=== PATIENT | female | born 2000 | race Caucasian/White ===

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

== ENCOUNTER → 2022-03-19 | Outpatient (REF) | payer BC, OTHER ==
[~2022-03-19] MED LIST changes: +BIRTH CONTOL; +IBUP-1022 PO
[2022-03-19 20:07] LABS: GC DNA AMPLIFICATION NEGATIVE (NEGATIVE)
== END ==
LOC: M LAB REF 16:56
PROVIDERS: ATTEND Nurse Practitioner Family
DX: Z11.3 Encounter for screening for infections with a predominantly sexual mode of transmission (principal)

== ENCOUNTER → 2022-09-20 | Outpatient (CLI) | payer BC, OTHER ==
[2022-09-20 13:31] LABS: HEMOGLOBIN 12.3 g/dl (12.0-15.5); MEAN CORPUSCULAR HEMOGLOBIN 29.9 pg (27.0-33.0); MEAN CORPUSCULAR HGB CONC 34.2 g/dl (32.0-36.5); MEAN CORPUSCULAR VOLUME 87.4 fl (80.0-96.0); PLATELET COUNT, AUTOMATED 219 10^3/uL (150-450); RED BLOOD COUNT 4.12 10^6/uL (4.00-5.40); WHITE BLOOD COUNT 6.7 10^3/uL (4.0-10.0)
[2022-09-20 14:22] LABS: HIV 1&2 SCREEN NEGATIVE (NEGATIVE)
[2022-09-20 14:31] LABS: HEPATITIS C VIRUS ABY INDEX 0.13 INDEX (<0.8)
[2022-09-20 14:44] LABS: GC DNA AMPLIFICATION NEGATIVE (NEGATIVE)
== END ==
LOC: M PLALAB 09:51
PROVIDERS: ATTEND Advanced Practice Midwife
DX: Z34.01 Encounter for supervision of normal first pregnancy, first trimester (principal)

== ENCOUNTER → 2022-10-17 | Outpatient (REF) | payer BC | LOC: M PLALAB 08:19 | PROVIDERS: ATTEND Obstetrics & Gynecology | DX: Z34.82 Encounter for supervision of other normal pregnancy, second trimester (principal) ==

== ENCOUNTER → 2022-11-20 | Outpatient (REF) | payer BC | LOC: M SFHCWAGY 12:41 | PROVIDERS: ATTEND Advanced Practice Midwife | DX: Z34.02 Encounter for supervision of normal first pregnancy, second trimester (principal) ==

== ENCOUNTER → 2022-12-03 | Outpatient (CLI) | payer BC | LOC: M WHC 11:09 | PROVIDERS: ATTEND Advanced Practice Midwife | DX: Z34.02 Encounter for supervision of normal first pregnancy, second trimester (principal) ==

== ENCOUNTER → 2023-01-18 | Outpatient (CLI) | payer BC ==
[2023-01-18 18:55] LABS: HEMOGLOBIN 10.9 g/dl (12.0-15.5); MEAN CORPUSCULAR HEMOGLOBIN 29.9 pg (27.0-33.0); MEAN CORPUSCULAR VOLUME 90.7 fl (80.0-96.0); PLATELET COUNT, AUTOMATED 244 10^3/uL (150-450); RED BLOOD COUNT 3.64 10^6/uL (4.00-5.40); WHITE BLOOD COUNT 8.4 10^3/uL (4.0-10.0)
== END ==
LOC: M PLALAB 14:33
PROVIDERS: ATTEND Advanced Practice Midwife
DX: Z34.02 Encounter for supervision of normal first pregnancy, second trimester (principal)

== ENCOUNTER → 2023-01-21 | Outpatient (CLI) | payer BC | LOC: M RAD 12:34 | PROVIDERS: ATTEND Advanced Practice Midwife | DX: Z34.02 Encounter for supervision of normal first pregnancy, second trimester (principal) ==

== ENCOUNTER → 2023-03-08 | Outpatient (REF) | payer BC | LOC: M PLALAB 14:05 | PROVIDERS: ATTEND Obstetrics & Gynecology | DX: Z34.93 Encounter for supervision of normal pregnancy, unspecified, third trimester (principal); Z3A.36 36 weeks gestation of pregnancy ==

== ENCOUNTER → 2023-03-15 | Outpatient (REF) | payer BC | LOC: M PLALAB 10:26 | PROVIDERS: ATTEND Obstetrics & Gynecology | DX: Z53.9 Procedure and treatment not carried out, unspecified reason (principal) ==

== ENCOUNTER 2023-04-05 08:41 | Inpatient (IN) | payer BC ==
[2023-04-05] VITALS (20 sets, daily range): BP systolic 84–135; BP diastolic 48–76
[~2023-04-05] VITALS: Ht 167.6 cm; Wt 121.4 kg
[2023-04-05] MEDS: LR 1,000 ML IV SCH (11:20)
[2023-04-05] MEDS ORDERED: CARBOPROST TROMETHAMINE 250 MCG/ML AMP IM PRN (11:20)
[2023-04-05] MEDS ORDERED: METHYLERGONOVINE MALEATE 0.2MG/ML 1ML VIAL IM PRN (11:20)
[2023-04-05] MEDS ORDERED: LIDOCAINE 1% MDV 20ML VIAL INFIL PRN (11:20)
[2023-04-05] MEDS ORDERED: TRANEXAMIC ACID INJection 1,000 MG in NS 100 ML IV PRN (11:20)
[2023-04-05] MEDS: miSOPROStol 50MCG 1/2 TABLET PO SCH (12:20)
[2023-04-05 13:39] LABS: HEMATOCRIT 32.6 % (36.0-47.0); HEMOGLOBIN 10.8 g/dl (12.0-15.5); MEAN CORPUSCULAR HEMOGLOBIN 28.1 pg (27.0-33.0); MEAN CORPUSCULAR HGB CONC 33.1 g/dl (32.0-36.5); MEAN CORPUSCULAR VOLUME 84.9 fl (80.0-96.0); PLATELET COUNT, AUTOMATED 245 10^3/uL (150-450); RED BLOOD COUNT 3.84 10^6/uL (4.00-5.40)
[2023-04-05] MEDS: CALCIUM CARBONATE 500 MG CHEW U/D PO PRN (19:03)
[2023-04-05] MEDS ORDERED: ONDANSETRON 4MG 2ML VIAL IV PRN (21:05)
[2023-04-05] MEDS ORDERED: EPIDURAL/PCA KEYS XX PRN (21:05)
[2023-04-05] MEDS ORDERED: NALOXONE INJ 0.4MG/1ML VIAL IV PRN (21:05)
[2023-04-05] MEDS ORDERED: diphenhydrAMINE 50MG/ML VIAL IV PRN (21:05)
[2023-04-05] MEDS ORDERED: LR 500 ML IV PRN (21:05)
[2023-04-05] MEDS: FENTANYL/ROPIVACAINE/NACL BAG 100 ML EPIDURAL SCH (21:35)
[2023-04-05] MEDS: OXYTOCIN DRIP 30 UNITS in IV 1 EA IV SCH (22:15)
[2023-04-05] MEDS: ePHEDrine SULFATE 25 MG/5 ML(5MG/ML) SYRINGE IVP PRN (22:53)
[2023-04-05] MEDS ORDERED: ePHEDrine SULFATE 25 MG/5 ML(5MG/ML) SYRINGE IVP PRN (23:20)
[2023-04-06] VITALS (28 sets, daily range): BP systolic 102–156; BP diastolic 39–94; O2SAT 98
[2023-04-06] MEDS: OXYTOCIN DRIP 30 UNITS in IV 1 EA IV PRN (06:29)
[2023-04-06] MEDS ORDERED: ANUSOL HC CREAM 30GM TOP PRN (07:05)
[2023-04-06] MEDS ORDERED: MOM 30ML SUSPENSION UDC PO PRN (07:05)
[2023-04-06] MEDS ORDERED: ACETAMINOPHEN TAB 650MG DOSE (2X325MG) PO PRN (07:05)
[2023-04-06] MEDS ORDERED: IBUPROFEN 600MG TAB PO PRN (07:05)
[2023-04-06] MEDS ORDERED: METHYLERGONOVINE MALEATE 0.2 MG TAB PO PRN (07:05)
[2023-04-06] MEDS ORDERED: RHOGAM 300MCG (1500IU) INJ IM SCH (07:05)
[2023-04-06] MEDS: IBUPROFEN 800 MG TAB PO PRN (07:11)
[2023-04-06] MEDS: PRENATAL VITAMINS CHEWABLE TABLET PO SCH (09:00)
[2023-04-06] MEDS: ACETAMINOPHEN 500 MG TAB PO PRN (13:48)
[2023-04-07 06:00] VITALS: BP 116/61; O2SAT 98
[2023-04-07 09:16] VITALS: BP 116/61; TEMP 97.5; O2SAT 98
[2023-04-07] MEDS: DIBUCAINE 1% OINTMENT 30GM TOP PRN (16:46)
[2023-04-07] MEDS: DOCUSATE SODIUM 100MG CAPSULE PO PRN (16:46)
[2023-04-07 18:00] VITALS: BP 125/60; O2SAT 98
[2023-04-08] MEDS: MEASLES,MUMPS,RUBELLA VACCINE INJ (MMR-II) SC.IMMUN ONE (09:00)
== END 2023-04-08 13:22 | disposition home or self-care (01) | DRG 560 ==
LOC: M LDO 08:41 → M LDI 11:20 → M OBS 04-06 09:06
PROVIDERS: ADMIT Advanced Practice Midwife; ATTEND Advanced Practice Midwife
PROC: 10E0XZZ Delivery of Products of Conception, External Approach (ICD-10-PCS; principal; 2023-04-06)
PROC: 0KQM0ZZ Repair Perineum Muscle, Open Approach (ICD-10-PCS; 2023-04-06)
DX: O42.02 Full-term premature rupture of membranes, onset of labor within 24 hours of rupture (principal); O70.1 Second degree perineal laceration during delivery; Z37.0 Single live birth; Z3A.39 39 weeks gestation of pregnancy; Z91.030 Bee allergy status; Z79.899 Other long term (current) drug therapy